=== PATIENT | female | born 1960 | race Caucasian/White ===

== ENCOUNTER 2022-02-02 14:33 | Outpatient (CLI) | payer BC, SELFPAY | END 2022-02-02 14:34 | disposition home or self-care (01) | LOC: LKVREF 02-10 11:02 | PROVIDERS: PCP Emergency Medicine; Visit Provider Student in an Organized Health Care Education/Training Program | DX: N39.0 Urinary tract infection, site not specified (principal) | CPT/HCPCS: 87086; 87186 ==

== ENCOUNTER 2023-02-01 08:18 | Outpatient (CLI) | payer BC, SELFPAY | END 2023-02-01 08:19 | disposition home or self-care (01) | LOC: NFLDREF 18:28 | PROVIDERS: PCP Emergency Medicine; Referring Provider Emergency Medicine; Visit Provider Emergency Medicine | DX: E78.5 Hyperlipidemia, unspecified (principal); I10 Essential (primary) hypertension | CPT/HCPCS: 80053; 80061 ==

== ENCOUNTER 2023-02-22 06:23 | Outpatient (CLI) | payer BC, SELFPAY ==
--- NOTE | 2023-02-22 07:58 | W.ANESCHARGE ---
Anesthesia Charges Start Date/Time Anesthesia Start Date: 02/22/23 Anesthesia Start Time: 07:18 Stop Date/Time Anesthesia Stop Date: 02/22/23 Anesthesia Stop Time: 07:58
--- NOTE | 2023-02-22 08:55 | W.ANESCHARGE ---
Anesthesia Charges Start Date/Time Anesthesia Start Date: 02/22/23 Anesthesia Start Time: 07:18 Stop Date/Time Anesthesia Stop Date: 02/22/23 Anesthesia Stop Time: 07:58
== END 2023-02-22 06:24 | disposition home or self-care (01) ==
LOC: OP CLINIC 06:23
PROVIDERS: PCP Emergency Medicine; Visit Provider Surgery
DX: Z86.010 Personal history of colon polyps (principal); K57.30 Diverticulosis of large intestine without perforation or abscess without bleeding; K63.5 Polyp of colon; K51.90 Ulcerative colitis, unspecified, without complications
CPT/HCPCS: 00811; 45380; 45385; 88305; J2704

== ENCOUNTER 2023-03-01 14:00 | Outpatient (CLI) | payer BC, SELFPAY ==
[2023-03-01 14:47] VITALS: BP 156/80; PULSE 105; RESP 18
--- NOTE | 2023-03-01 14:59 | W.PM.STED ---
Stress Test Note Date Date Seen: 03/28/23 Date of test: 03/01/23 Providers Primary care provider: Taina Randolph Stress test physician: Piper Eller Stress Test Note Stress test ordered: Stress Echo Indication for test: Shortness of breath Stress test medicine: None Results discussion: Resting EKG: Sinus rhythm, 93 beats per minute, some artifact noted on this EKG. Resting blood pressure:162/90 Stress test: Patient exercised on the treadmill following standard [place] protocol. She quickly was complaining of shortness of breath. She was only able to exercise to 3 minutes 2nd, could not go further due to shortness of breath, difficulty breathing. She had no chest pain. There was a very brief interval where the battery went and was quickly changed. Patient reached a maximum heart rate of 150 beats per minute which was 111% of a calculated target heart rate of 134. She had a peak blood pressure at exercise that nursing staff admits was difficult to hear, calculated at 140 2/80. This would give her a rate pressure product 21,300 this would also potentially signify potential drop in her blood pressure with peak exercise. Nursing staff readily admitted it was difficult to auscultate. At the end of the recovery, had some flattened T-wave changes that do not meet ST segment changes criteria for ischemia but does look like there is inferior and lateral precordial distribution to this. This absolutely does not meet EKG criteria for ischemia. She most definitely had very poor exercise tolerance which could be limiting to the test as well. Await echo images to couple this for a full formal diagnostic. Outside of shortness of breath limiting this test, patient had no chest discomfort. Impression: Nondiagnostic EKG changes not meeting criteria for ischemia, significant exercise tolerance limitations. Follow up suggested: Patient shortness of breath quickly abated after cessation of exercise. She was discharged in stable condition. She will await the echo images to couple this report for a full formal diagnostic report. I do think that she should independently pursue formal pulmonary function testing giving her smoking history. Did review her CT for screening for lung cancer from December of 2021, some emphysema was seen on that. If there are any echo concerns, recommend referral to Cardiology.
== END 2023-03-01 14:01 | disposition home or self-care (01) ==
LOC: STRESS 14:01
PROVIDERS: PCP Emergency Medicine; Visit Provider Family Medicine
DX: R06.02 Shortness of breath (principal)
CPT/HCPCS: 93016; 93325; 93351

== ENCOUNTER 2023-04-17 07:28 | Outpatient (CLI) | payer BC, SELFPAY ==
[2023-04-17] MEDS: SODIUM CHLORIDE 0.9 % (FLUSH) 10 ML SYRINGE IVF (09:02)
[2023-04-17] MEDS: REGADENOSON 0.4 MG/5 ML SYRINGE IVP (09:02)
[2023-04-17 12:06] VITALS: BP 135/73; PULSE 90
--- NOTE | 2023-04-17 12:18 | W.PM.STED ---
Stress Test Note Date Date of test: 04/17/23 Providers Primary care provider: Taina Randolph Stress test physician: Nico Jean Baptiste Stress Test Note Stress test ordered: Lexiscan Indication for test: Shortness of breath Stress test medicine: Lexiscan Results discussion: Patient is a very nice 63-year-old lady presents for the above test after discussion the risks benefits and side effects she would like to proceed cardiac stress test medical history form is reviewed entirely. Pretest EKG shows normal sinus rhythm, with a ventricular rate of 69 and a blood pressure 137/84. Standard nonwalking Lexiscan is done over 5 minute. She had really no symptoms at all. Maximum heart rate was 118, maximum blood pressure was 160/84. No acute ST wave changes are noted, she has no dysrhythmias. Recovery was normal Impression: Negative electrographic portion of Lexiscan. Follow up suggested: Await nuclear images clinical correlation with these will be needed, they will be read by Cardiology. Patient will this testing facility in good condition.
== END 2023-04-17 07:29 | disposition home or self-care (01) ==
LOC: STRESS 07:29
PROVIDERS: PCP Emergency Medicine; Visit Provider Family Medicine
DX: R06.09 Other forms of dyspnea (principal)
CPT/HCPCS: 78452; 93016; 93017; A9500; J2785

== ENCOUNTER 2023-05-22 12:17 | Outpatient (CLI) | payer BC, SELFPAY | END 2023-05-22 12:18 | disposition home or self-care (01) | PROVIDERS: PCP Emergency Medicine; Visit Provider Emergency Medicine | DX: Z00.00 Encounter for general adult medical examination without abnormal findings (principal); I10 Essential (primary) hypertension; E78.5 Hyperlipidemia, unspecified | CPT/HCPCS: 80053 ==

== ENCOUNTER 2023-05-30 13:01 | Outpatient (CLI) | payer BC, SELFPAY ==
--- NOTE | 2023-05-30 13:20 | CRLHL7_ITS ---
For Patients: As a result of the Century Cures Act, medical imaging exams and procedure reports are released immediately into your electronic medical record. You may view this report before your referring provider. If you have questions, please contact your health care provider. BILATERAL SCREENING MAMMOGRAM WITH COMPUTER-AIDED DETECTION TECHNIQUE: CC and MLO views were obtained. These mammographic images have been obtained using full-field digital technique. These mammographic images were interpreted with the benefit of computer-aided detection. COMPARISON FILM: 02/19/2014. FINDINGS: There are scattered areas of fibroglandular density IMPRESSION: There is no radiographic evidence for malignancy. ASSESSMENT: BI-RADS Category 1: Negative RECOMMENDATION: Routine screening mammogram in 1 year. A lay language report of this examination will be provided to the patient. J Luis Delgado M.D. Diagnostic Radiologist [email or web address] MARYAM/[email or web address] / be/Dictated by: J Luis eDlgado MD @ 05/31/2023 7:54:00 AM (Electronically Signed)
--- NOTE | 2023-05-30 14:00 | CRLHL7_ITS ---
For Patients: As a result of the Century Cures Act, medical imaging exams and procedure reports are released immediately into your electronic medical record. You may view this report before your referring provider. If you have questions, please contact your health care provider. DXA BONE MINERAL DENSITY STUDY Reason for exam: Family history of osteoporosis. Current height (in): 64. Weight (lb): 170. Menopause age: 50. Ethnicity: White. 1. Have you had a previous hip or vertebral fracture? No. 2. Have you had any fractures during your adult life which did not result from significant trauma (e.g., auto accident)? No. 3. Did either of your parents have a hip fracture? No. 4. Do you smoke? Yes. 5. Have you ever taken Glucocorticoids? No 6. Do you have rheumatoid arthritis? No. 7. Do you have secondary osteoporosis? No. 8. Do you drink 3 or more alcoholic drinks per day? No. 9. Are you being treated for osteoporosis? No. 10. Have you ever taken any of the following medications: Actonel, Evista, Fosamax, Miacalcin, Reclast, Boniva, Forteo, HRT (i.e., estrogen/hormone therapy), Protelos, Prolia, Vitamin D, Calcium, other ??? please specify. ANSWER: Yes, vitamin D. 11. Do you have any of the following medical conditions: Anorexia or bulimia, asthma or emphysema, end stage renal disease, hyperparathyroidism, any seizure disorders, cancer, inflammatory bowel diseases, hysterectomy, other ??? please specify. ANSWER: Yes, inflammatory bowel diseases. 12. What was your maximum height (inches)? 64. 13. Do you perform weight bearing exercise regularly? No. 14. Do you regularly consume dairy products? Yes. 15. Do you drink caffeinated beverages? Yes. If female: 16. At what age did your period start? 12. 17. Are you premenopausal? No. 18. How many full-term pregnancies have you had? 2. 19. Have you ever missed your period for more than 6 months in a row (not including or menopause)? No. TECHNIQUE: Bone mineral density study was performed using the [employer] FINDINGS: The results of the study expressed as bone mineral density (BMD) are as follows: Lumbar spine L1 to L4: BMD: 1.073 g/cm2. T-score: 0.2. Z-score: 1.9 Neck Left: BMD: 0.716 g/cm2. T-score: -1.2. Z-score: 0.2 Right: BMD: 0.760 g/cm2. T-score: -0.8. Z-score: 0.6 Total Left: BMD: 0.982 g/cm2. T-score: 0.3. Z-score: 1.4 Right: BMD: 0.885 g/cm2. T-score: -0.5. Z-score: 0.7 IMPRESSION: Osteopenia. FRAX 10-year Fracture Risk Major Osteoporotic Fracture: 7.8% Hip Fracture: 1.0% Reported Risk Factors: [place] () Neck BMD=0.716, BMI= 29.2, smoking J Luis Delgado M.D. Diagnostic Radiologist [email or web address] MARYAM/[email or web address] guajardo/Dictated by: J Luis Delgado MD @ 05/30/2023 3:00:00 PM (Electronically Signed)
== END 2023-05-30 13:02 | disposition home or self-care (01) ==
LOC: MAMMO 13:01
PROVIDERS: PCP Emergency Medicine; Visit Provider Emergency Medicine
DX: Z12.31 Encounter for screening mammogram for malignant neoplasm of breast (principal); Z82.62 Family history of osteoporosis; M85.89 Other specified disorders of bone density and structure, multiple sites
CPT/HCPCS: 77067; 77080

== ENCOUNTER 2023-08-24 08:32 | Outpatient (CLI) | payer BC, SELFPAY | END 2023-08-24 08:33 | disposition home or self-care (01) | LOC: NFLDREF 09-01 21:31 | PROVIDERS: PCP Emergency Medicine; Visit Provider Emergency Medicine | DX: E78.5 Hyperlipidemia, unspecified (principal) | CPT/HCPCS: 80061 ==

== ENCOUNTER 2023-08-29 14:46 | Outpatient (CLI) | payer BC, SELFPAY | END 2023-08-29 14:47 | disposition home or self-care (01) | PROVIDERS: PCP Emergency Medicine; Visit Provider Emergency Medicine | DX: R20.2 Paresthesia of skin (principal) | CPT/HCPCS: 82607; 84443 ==

== ENCOUNTER 2023-08-31 13:49 | Outpatient (RCR) | payer BC, SELFPAY | END 2023-11-30 12:22 | disposition home or self-care (01) | PROVIDERS: PCP Emergency Medicine; Visit Provider Emergency Medicine | DX: M79.602 Pain in left arm (principal); M79.601 Pain in right arm; R29.898 Other symptoms and signs involving the musculoskeletal system; Z51.89 Encounter for other specified aftercare | CPT/HCPCS: 97110; 97162 ==

== ENCOUNTER 2023-09-07 11:17 | Outpatient (CLI) | payer BC, SELFPAY | END 2023-09-07 11:18 | disposition home or self-care (01) | LOC: NFLDREF 09-12 07:45 | PROVIDERS: PCP Emergency Medicine; Referring Provider Emergency Medicine; Visit Provider Internal Medicine | DX: E78.5 Hyperlipidemia, unspecified (principal); J44.9 Chronic obstructive pulmonary disease, unspecified; I10 Essential (primary) hypertension | CPT/HCPCS: 82550; 84450 ==

== ENCOUNTER 2023-10-03 14:22 | Outpatient (REF) | payer BC, SELFPAY ==
[2023-10-03 16:10] LABS: Chloride* 100 mmol/L (96-114); Sodium* 134 mmol/L (135-149)
[2023-10-03 16:11] LABS: Potassium* 4.4 mmol/L (3.6-5.1)
[2023-10-03 16:13] LABS: Anion Gap 8 mEq/L (7-15); Carbon Dioxide* 26 mmol/L (20-32); Creatinine* 0.7 mg/dL (0.5-1.5); Estimated Glomerular Filt Rate 97 ml/min
[2023-10-03 16:14] LABS: Blood Urea Nitrogen* 23 mg/dL (7-30); Calcium* 9.7 mg/dL (8.4-10.6); Glucose* 121 mg/dL (60-115)
== END 2023-10-03 14:23 | disposition home or self-care (01) ==
LOC: NPINS 14:22
PROVIDERS: PCP Emergency Medicine; Visit Provider Internal Medicine
DX: R06.09 Other forms of dyspnea (principal)
CPT/HCPCS: 80048

== ENCOUNTER 2023-12-06 14:03 | Outpatient (CLI) | payer BC, SELFPAY | END 2023-12-06 14:04 | disposition home or self-care (01) | LOC: LKVREF 14:04 | PROVIDERS: PCP Emergency Medicine; Visit Provider Emergency Medicine | DX: Z01.818 Encounter for other preprocedural examination (principal) | CPT/HCPCS: 80048 ==

== ENCOUNTER 2023-12-14 07:00 | Day surgery (SDC) | payer BC, SELFPAY ==
[2023-12-14] VITALS (20 sets, daily range): BP systolic 116–158; BP diastolic 56–90; PULSE 76–98; RESP 12–16; TEMP 36.1–36.7; O2SAT 93–100; BMI 27.4
[2023-12-14] MEDS: LACTATED RINGERS 1000 ML 1,000 ML 100 ML IV ×2 (07:20→10:27)
[2023-12-14] MEDS: SODIUM CHLORIDE 0.9 % (FLUSH) 10 ML SYRINGE IVF (07:20)
--- NOTE | 2023-12-14 07:34 | W.PM.H&PU ---
History & Physical Update History & Physical Update H&P Reviewed and patient assessed: No changes noted
[2023-12-14] MEDS: fentaNYL 100 MCG/2 ML inj IVP (07:42)
[2023-12-14] MEDS: MIDAZOLAM HCL 1 MG/ML inj IVP (07:42)
--- NOTE | 2023-12-14 07:48 | W.PM.NB ---
Nerve Block Nerve Block Time Seen by Provider: 07:38 Date Seen: 12/14/23 Type of block requested by surgeon for post-operative analgesia: supraclavicular Side: right Time out performed: Yes Verification of patient name: Yes Verification of date of : Yes Site marking: site marked Name of person performing procedure: Marco Continuous monitoring Was continuous monitoring of O2 sat, B/P, cardiac catheterization technologist, recorded every 15 minutes?: Yes Procedure Checklist: sterile prep, needles and gloves Ultrasound guided. Images saved: Yes Medications given in 5ml increments after negative aspiration: Ropivicaine %: 0.5 mL: 20 Needle gauge: 22 Decadron (mg): 10 Precedex (mcg): 25 Patient tolerated procedure well: Yes Block Charges Block Charge (with Pro Fee): Brachial Plexus Use of Ultrasound Machine for Block: Yes- US Guidance/pain block
--- NOTE | 2023-12-14 07:53 | SUR.PREOP ---
TIME?OUT:?0741 PT/Samantha Brewer RN/Aris Minaya CRNA?VERIFICATION?OF?SURGICAL?SITE right shoulder,?PROCEDURE,?AND?CONSENT OBTAINED?PRIOR?TO?INVASIVE?PROCEDURE.
[2023-12-14] MEDS: EPINEPHrine 1 MG in SODIUM CHLORIDE IRRIG SOLUTION 3,000 ML 9003 MG IRRIGATION ×4 (08:45→09:45)
[2023-12-14] MEDS: CEFAZOLIN 2 GM INJ IVP (09:06)
--- NOTE | 2023-12-14 10:53 | PM.ORPRC ---
Procedure Note Date of procedure: 12/14/23 Procedure: PREOPERATIVE DIAGNOSES: 1. Right shoulder rotator cuff tear. 2. Right shoulder biceps tendinosis. POSTOPERATIVE DIAGNOSES: 1. Right shoulder rotator cuff tear - subscapularis and supraspinatus 2. Right shoulder biceps tendinosis. NAME OF OPERATION: 1. Right shoulder arthroscopic rotator cuff repair. 2. Right shoulder arthroscopic biceps tenotomy 3. Right shoulder arthroscopic bursectomy, subacromial decompression/partial acromioplasty. SURGEON: Luke Harris MD REFRIGERATION SYSTEM INSTALLER: Nargis Acevedo P.A.-C. An cement tester assistant was critical for this case to aid in patient positioning, suture manipulation, arm positioning, instrument positioning, and closure. ANESTHESIA: General plus preoperative supraclavicular block. IMPLANTS: Arthrex 2.6 mm knotless FiberTak anchors x2; Arthrex 4.75 mm BioComposite SwiveLock anchor x2 COMPLICATIONS: None ESTIMATED BLOOD LOSS: 5 mL INDICATIONS: The patient is a pleasant, 63-year-old female who has experienced progressively worsening that did not improve with conservative treatment. Physical exam and imaging were consistent with a biceps tendinosis and partial-thickness rotator cuff tear. Given these findings, as well as the weakness and pain, and failure to improve with nonoperative management, recommendation was made for surgery. FINDINGS: Exam under anesthesia revealed stable shoulder with full range of motion. The diagnostic arthroscopy revealed healthy chondral surfaces of the glenohumeral joint. There is partial-thickness articular sided tear of the upper subscapularis. There is partial, high-grade thickness tear of the anterior supraspinatus which involved greater than 50% of the tendon thickness. Infraspinatus was intact. The long head of the biceps tendon demonstrated extensive partial-thickness tearing of the visualized intra-articular portion. Biceps anchor and superior labrum were intact. Anterior posterior labrum were intact. No loose bodies were identified within the pouch or subscapularis recess. PROCEDURE: Following a thorough discussion of risks, benefits, and alternatives, informed consent was obtained and the operative shoulder was marked. A supraclavicular nerve block was performed by anesthesia staff in preop holding. The patient was brought to the operating room and placed supine on the operating table. Induction of anesthesia was completed, and patient was given IV Ancef preoperatively for prophylaxis. Patient was placed into the beach chair position. Head was placed in padded baggage porter head in neutral alignment, and all bony prominences were well padded. The operative shoulder and upper extremity were prepped and draped in the appropriate sterile fashion using ChloraPrep. Surgical time-out was performed confirming patient identity, surgical site, surgical procedure. The glenohumeral joint was injected with 20 mL of normal saline using an 18g spinal needle from a posterior approach. Posterior portal was established. Anterior portal was established after localization with a spinal needle and a 7.0 mm cannula was placed here. Diagnostic arthroscopy was then performed with findings as noted above. The shaver was then utilized to debride the frayed portions of the long head of the biceps tendon as well as the undersurface of the anterior supraspinatus. Biceps tenotomy was performed using arthroscopic scissors. Biceps anchor was then debrided. After debridement superior labrum was confirmed to be stable. Attention was then directed to the subscapularis where there was partial to Achilles sided tearing of the upper subscapularis. The footprint of the supraspinatus was debrided with arthroscopic shaver. A 2.6 mm knotless FiberTak anchor was then placed in the medial aspect of the subscapularis footprint through the anterior portal. Knotless suture was passed through the upper subscapularis using these with Stitch device. Knotless repair was then completed. After completion of the repair the subscapularis was noted to be well fixed in its anatomic position. Remnant sutures were cut and removed. Next attention was directed to the supraspinatus. A needle was used to shuttle a PDS suture through the area of the partial-thickness anterior supraspinatus tear. Camera was then moved into the subacromial space. A lateral portal was established after localization with spinal needle. Subacromial bursectomy was performed using arthroscopic shaver. Subacromial decompression was then performed using electrocautery followed by the bone-cutting shaver to remove a small anterior spur off the acromion. Attention was directed back to the supraspinatus. The anterior supraspinatus also was also noted to have partial bursal sided tear with minimal intact fibers. The tear was then completed using the arthroscopic shaver. After completion of the tear it measured approximately 1 cm anterior to posterior direction. Footprint was debrided of soft tissue lightly decorticated with the bone-cutting shaver. Small stab incision was then placed off the lateral aspect of the acromion through which a 2.6 mm knotless FiberTak suture anchor was placed into the medial aspect of the supraspinatus footprint. A passport cannulas placed into the lateral portal. Using FiberLink suture and scorpion, sutures from this anchor were shuttled through the supraspinatus tendon lateral to the musculotendinous junction. After shuttling sutures, knotless sutures were used to complete a medial row repair. The 2 FiberTape sutures were then brought laterally and placed into a 4.75 mm BioComposite SwiveLock anchor, which was placed lateral to the anterior supraspinatus footprint. The sutures were tensioned and SwiveLock anchor was secured into position. Remnant sutures were cut and removed. Medial row was tensioned a final time and remnant sutures were cut and removed. Excellent securing of the rotator cuff was achieved with good tension on the cuff. The rotator cuff was re-probed and found to be stable. Surgical instruments and cannulas were removed, and excess fluid was drained for the subacromial space. Portal sites were closed with 4-0 nylon simple interrupted sutures, and sterile dressings were applied. Right upper extremities placed into an abduction sling. Patient was then rotated in the supine position, awoken from anesthesia, transferred to the PACU in stable condition. PLAN: 1. Discharged to home day of surgery. 2. Ice for pain and swelling. 3. Tylenol and oxycodone as needed for pain control. 4. Abduction sling at all times except for ROM and showering. -Remove sling several times daily for pendulum exercises finger, wrist, and elbow range of motion. 5. Follow-up in orthopedic clinic in 10-14 days for wound check and suture removal. 6. Will initiate formal physical therapy 2 weeks postoperatively per the standard rotator cuff repair protocol.
--- NOTE | 2023-12-14 11:01 | W.ANESCHARGE ---
Anesthesia Charges Start Date/Time Anesthesia Start Date: 12/14/23 Anesthesia Start Time: 08:55 Stop Date/Time Anesthesia Stop Date: 12/14/23 Anesthesia Stop Time: 10:58
[2023-12-14] MEDS: fentaNYL 100 MCG/2 ML inj 50 MCG IVP ×3 (11:09→11:32)
[2023-12-14] MEDS: OxyCODONE/APAP 5-325 TABLET PO (12:02)
== END 2023-12-14 13:31 | disposition home or self-care (01) ==
LOC: OR 07:00
PROVIDERS: PCP Emergency Medicine; Visit Provider Orthopaedic Surgery
PROC: (CPT 23412; principal; 2023-12-14 08:45)
DX: M75.101 Unspecified rotator cuff tear or rupture of right shoulder, not specified as traumatic (principal); M75.21 Bicipital tendinitis, right shoulder; G89.18 Other acute postprocedural pain
CPT/HCPCS: 29827; 29828; 29826; 01630; 64415; 76942; A9270; C1713; J0171; J0690; J1100; J2250; J2371; J2405; J2704; J2710; J2795; J3010; J7120; L3670

== ENCOUNTER 2024-03-18 13:45 | Outpatient (RCR) | payer BC, SELFPAY | END 2024-05-20 10:06 | disposition home or self-care (01) | PROVIDERS: PCP Emergency Medicine; Visit Provider Orthopaedic Surgery | DX: Z98.890 Other specified postprocedural states (principal); Z51.89 Encounter for other specified aftercare | CPT/HCPCS: 97110; 97140; 97161; 97530 ==

== ENCOUNTER 2024-06-05 08:19 | Outpatient (CLI) | payer BC, SELFPAY | END 2024-06-05 08:20 | disposition home or self-care (01) | LOC: NFLDREF 06-06 08:40 | PROVIDERS: PCP Emergency Medicine; Referring Provider Emergency Medicine; Visit Provider Emergency Medicine | DX: E78.2 Mixed hyperlipidemia (principal); I10 Essential (primary) hypertension; Z13.21 Encounter for screening for nutritional disorder | CPT/HCPCS: 80048; 80061; 82607 ==

== ENCOUNTER 2024-06-23 08:36 | Outpatient (CLI) | payer BC, SELFPAY | END 2024-06-23 08:37 | disposition home or self-care (01) | LOC: RAD 08:37 | PROVIDERS: PCP Emergency Medicine; Visit Provider Emergency Medicine | DX: R01.1 Cardiac murmur, unspecified (principal) | CPT/HCPCS: 93306 ==